=== PATIENT | male | born 1960 | race Caucasian/White ===

== ENCOUNTER 2021-09-20 13:49 | Outpatient (CLI) | payer MEDICARE | END 2021-09-20 13:50 | disposition home or self-care (01) | LOC: CSHWCC 13:49 | PROVIDERS: ATTEND Nurse Practitioner Family | DX: S91.105D Unspecified open wound of left lesser toe(s) without damage to nail, subsequent encounter (principal); R60.0 Localized edema | CPT/HCPCS: 97139; G0463; 99204 ==

== ENCOUNTER 2021-10-04 08:55 | Outpatient (CLI) | payer MEDICARE | END 2021-10-04 08:56 | disposition home or self-care (01) | LOC: CSHWCC 08:55 | PROVIDERS: ATTEND Nurse Practitioner Family | DX: S91.106D Unspecified open wound of unspecified lesser toe(s) without damage to nail, subsequent encounter (principal); R60.0 Localized edema | CPT/HCPCS: 97139; G0463; 99213 ==

== ENCOUNTER 2021-10-22 08:48 | Outpatient (CLI) | payer MEDICARE | END 2021-10-22 08:49 | disposition home or self-care (01) | LOC: CSHWCC 08:48 | PROVIDERS: ATTEND Nurse Practitioner Family | DX: S91.106D Unspecified open wound of unspecified lesser toe(s) without damage to nail, subsequent encounter (principal); R60.0 Localized edema | CPT/HCPCS: 11042; 97139; G0463; 99212 ==

== ENCOUNTER 2021-11-05 10:02 | Outpatient (CLI) | payer OTHER | END 2021-11-05 10:03 | disposition home or self-care (01) | LOC: CSHWCC 10:02 | PROVIDERS: ATTEND Nurse Practitioner Family | DX: S91.106D Unspecified open wound of unspecified lesser toe(s) without damage to nail, subsequent encounter (principal) | CPT/HCPCS: 99212; G0463 ==

== ENCOUNTER 2021-11-19 08:21 | Outpatient (CLI) | payer MEDICARE | END 2021-11-19 08:22 | disposition home or self-care (01) | LOC: CSHWCC 08:21 | PROVIDERS: ATTEND Nurse Practitioner Family | DX: S91.105D Unspecified open wound of left lesser toe(s) without damage to nail, subsequent encounter (principal) ==

== ENCOUNTER 2022-10-17 14:12 | Outpatient (CLI) | payer OTHER | END 2022-10-17 14:13 | disposition home or self-care (01) | LOC: CSHWCC 14:12 | PROVIDERS: ATTEND Nurse Practitioner Family | DX: R60.0 Localized edema (principal) | CPT/HCPCS: 11042; 29581; 97607 ==

== ENCOUNTER 2022-10-24 08:04 | Outpatient (CLI) | payer OTHER | END 2022-10-24 08:05 | disposition home or self-care (01) | LOC: CSHWCC 08:04 | PROVIDERS: ATTEND Nurse Practitioner Family | DX: R60.0 Localized edema (principal); S81.802D Unspecified open wound, left lower leg, subsequent encounter | CPT/HCPCS: 11042; 29581 ==

== ENCOUNTER 2022-10-30 08:05 | Outpatient (CLI) | payer OTHER | END 2022-10-30 08:06 | disposition home or self-care (01) | LOC: CSHWCC 08:05 | PROVIDERS: ATTEND Nurse Practitioner Family | DX: R60.0 Localized edema (principal); S81.802D Unspecified open wound, left lower leg, subsequent encounter | CPT/HCPCS: 11042; 29581 ==

== ENCOUNTER 2022-11-06 08:13 | Outpatient (CLI) | payer OTHER | END 2022-11-06 08:14 | disposition home or self-care (01) | LOC: CSHWCC 08:13 | PROVIDERS: ATTEND Nurse Practitioner Family | DX: R60.0 Localized edema (principal); S81.802D Unspecified open wound, left lower leg, subsequent encounter | CPT/HCPCS: 11042 ==

== ENCOUNTER 2022-11-13 08:10 | Outpatient (CLI) | payer OTHER | END 2022-11-13 08:11 | disposition home or self-care (01) | LOC: CSHWCC 08:10 | PROVIDERS: ATTEND Nurse Practitioner Family | DX: R60.0 Localized edema (principal); S81.802D Unspecified open wound, left lower leg, subsequent encounter | CPT/HCPCS: 11042 ==

== ENCOUNTER 2022-11-21 08:03 | Outpatient (CLI) | payer OTHER | END 2022-11-21 08:04 | disposition home or self-care (01) | LOC: CSHWCC 08:03 | PROVIDERS: ATTEND Nurse Practitioner Family | DX: S81.802D Unspecified open wound, left lower leg, subsequent encounter (principal); R60.0 Localized edema | CPT/HCPCS: 97139; G0463; 99211 ==

== ENCOUNTER 2022-11-29 08:33 | Outpatient (CLI) | payer OTHER | END 2022-11-29 08:34 | disposition home or self-care (01) | LOC: CSHWCC 08:33 | PROVIDERS: ATTEND Nurse Practitioner Family | DX: R60.0 Localized edema (principal); S81.802D Unspecified open wound, left lower leg, subsequent encounter | CPT/HCPCS: 97602 ==

== ENCOUNTER 2022-12-13 08:34 | Outpatient (CLI) | payer OTHER | END 2022-12-13 08:35 | disposition home or self-care (01) | LOC: CSHWCC 08:34 | PROVIDERS: ATTEND Nurse Practitioner Family | DX: R60.0 Localized edema (principal); S81.802D Unspecified open wound, left lower leg, subsequent encounter | CPT/HCPCS: 97602 ==

== ENCOUNTER 2023-03-19 07:20 | Outpatient (CLI) | payer OTHER | END 2023-03-19 07:21 | disposition home or self-care (01) | LOC: CSHCP 07:20 | PROVIDERS: ATTEND Family Medicine | DX: R05.3 Chronic cough (principal) | CPT/HCPCS: 71250; 94060; 94664; 94726; 94729; 94760 ==